=== PATIENT | female | born 1960 | race Caucasian/White ===

== ENCOUNTER 2017-05-20 18:58 | Emergency (ER) | payer BC ==
[~2017-05-20] VITALS: Ht 162.6 cm; Wt 82.7 kg
[~2017-05-20 18:58] MED LIST: ALDACTAZIDE1 TABLET PO; AMOXICILLIN500 M1 PO; ASPIR-TRIN325 M1 PO; BIOTIN 5000MCG PO; FLEXERIL10 MG PO; FLINTSTONES M300 MCG PO; LISINOPRIL10 MG PO; PERCOCET 5/31 TABLET PO; SYNTHROID112 MCG PO; TYLENOL EXTRA500 MG PO; VITAMIN D31000 UNI2 PO
[2017-05-20 20:04] LABS: HEMATOCRIT 40.5 % (36.0-46.0); MCH 31.4 PG (29.0-34.0); MCHC 32.8 G/DL (30.0-36.0); MCV 95.7 FL (83-99); MEAN PLAT.VOLUME 10.5 uM^3 (9.5-12.4); PLATELET COUNT 231 K/uL (156-360); RBC DIS.WIDTH-CV 13.1 % (11.8-14.6); RBC DIS.WIDTH-SD 45.1 % (39-53); RED BLOOD COUNT 4.23 M/uL (3.80-5.20); WHITE BLOOD COUNT 7.9 K/uL (4.1-10.2)
[2017-05-20 20:14] LABS: CHLORIDE 110 mEq/L (99-109); POTASSIUM 4.2 mEq/L (3.7-5.4); SODIUM 143 mEq/L (136-147)
[2017-05-20 20:16] LABS: GLUCOSE 93 mg/dL (70-99)
[2017-05-20 20:17] LABS: ANION GAP 9 MEQ/L (2-14)
[2017-05-20 20:19] LABS: GFR ESTIMATE (CALCULATED) > 59 mL/min/
[2017-05-20 20:20] LABS: UREA NITROGEN (BUN) 12 mg/dL (9-23)
[2017-05-20 20:26] LABS: TROP-I INTERPRETATION NEGATIVE; TROPONIN-I < 0.01 ng/mL (0.0-0.30)
[2017-05-20 23:13] VITALS: BP 108/69
== END 2017-05-20 23:14 | disposition home or self-care (01) ==
LOC: EME 18:58
PROVIDERS: Emergency Medicine
DX: R07.9 Chest pain, unspecified (principal); M06.9 Rheumatoid arthritis, unspecified; I10 Essential (primary) hypertension; Z87.442 Personal history of urinary calculi; Z91.040 Latex allergy status; Z88.6 Allergy status to analgesic agent
CPT/HCPCS: 71020; 80048; 84484; 85027; 85379; 93005; 99281; 99284

== ENCOUNTER 2017-11-07 04:01 | Emergency (ER) | payer BC ==
[~2017-11-07] VITALS: Ht 162.6 cm; Wt 106.4 kg
[2017-11-07] MEDS ORDERED: PERCOCET 5/31 TABLET PO (06:12)
[2017-11-07] MEDS ORDERED: FLEXERIL5 MG PO (06:12)
[2017-11-07] MEDS ORDERED: LIDODERM 5% P1 PATCH TD (06:12)
[2017-11-07 06:43] LABS: APPEARANCE CLEAR ((CLEAR)); BILIRUBIN NEGATIVE; BLOOD NEGATIVE; COLOR YELLOW ((YELLOW)); GLUCOSE (STRIP) NEGATIVE; KETONES NEGATIVE; LEUKOCYTES SMALL; NITRITE NEGATIVE; PROTEIN (STRIP) NEGATIVE; SPECIFIC GRAVITY 1.019 (1.000-1.030)
[2017-11-07 06:49] LABS: BACTERIA NONE SEEN /HPF; EPITHELIAL CELLS RARE /HPF; MUCUS NONE SEEN /LPF; RED BLOOD CELLS 0-5 /HPF (0-5); UCUL ADDED? YES; WHITE BLOOD CELLS TNTC /HPF (0-5)
[2017-11-07 07:10] VITALS: BP 141/80
== END 2017-11-07 07:15 | disposition home or self-care (01) ==
LOC: EME 04:01
DX: M54.41 Lumbago with sciatica, right side (principal); N30.90 Cystitis, unspecified without hematuria; I10 Essential (primary) hypertension; E03.9 Hypothyroidism, unspecified; K21.9 Gastro-esophageal reflux disease without esophagitis; Z87.442 Personal history of urinary calculi; Z86.718 Personal history of other venous thrombosis and embolism; Z90.710 Acquired absence of both cervix and uterus; Z91.040 Latex allergy status; Z88.6 Allergy status to analgesic agent; Z88.8 Allergy status to other drugs, medicaments and biological substances
CPT/HCPCS: 72131; 81003; 87077; 87086; 87186; 99281; 99284; J2270

== ENCOUNTER → 2018-05-19 | Outpatient (CLI) | payer BC ==
[~2018-05-19] MED LIST changes: +FLEXERIL5 MG PO; +LIDODERM 5% P1 PATCH TD
== END | disposition home or self-care (01) ==
LOC: NUC 07:24
DX: R10.11 Right upper quadrant pain (principal)
CPT/HCPCS: 78226; A9537